=== PATIENT | female | born 1945 | race Caucasian/White ===

== ENCOUNTER → 2016-04-14 | Outpatient (CLI) | payer BC ==
--- NOTE | 2016-04-17 15:13 | MAMMOGRAPHY REPORT ---
BILATERAL DIGITAL SCREENING MAMMOGRAM TOMOSYNTHESIS WITH CAD: 04/14/2016 TECHNIQUE: Breast tomosynthesis in addition to standard 2D mammography was performed. Current study was also evaluated with a Computer Aided Detection (CAD) system. COMPARISON: Comparison is made to exams dated: 06/10/2014 mammogram - [facility], 06/05/2006, 07/13/2009 mammogram, 03/31/2010 mammogram, and 07/16/2009 mammogram - [facility]. BREAST COMPOSITION: There are scattered areas of fibroglandular density in both breasts. FINDINGS: No suspicious masses, calcifications, or areas of architectural distortion are noted in e ither breast. There has been no significant interval change compared to prior exams. There are stab le postsurgical changes from bilateral reduction mammoplasty. Scattered bilateral benign-appearing calcifications are not significantly changed. IMPRESSION: ACR BI-RADS CATEGORY 2: BENIGN There is no mammographic evidence of malignancy. A 1 year screening mammogram is recommended. The p atient will receive written notification of the results. Approximately 10% of breast cancers are not detected with mammography. A negative mammographic repor t should not delay biopsy if a clinically suggestive mass is present. Elida Trimble M.D. ah/:04/14/2016 15:38:50 Radiation Oncology Therapist: Brianda KIRKPATRICK)([place]), [facility] letter sent: Normal 1/2 BI-RADS Code: ACR BI-RADS Category 2: Benign
== END | disposition home or self-care (01) ==
LOC: C.MAMM 15:14
PROVIDERS: ATTEND Obstetrics & Gynecology
DX: Z12.31 Encounter for screening mammogram for malignant neoplasm of breast (principal)

== ENCOUNTER → 2016-05-16 | Outpatient (CLI) | payer BC ==
[2016-05-16 16:24] LABS: THYROID STIMULATING HORMONE 0.87 uIu/ml (0.300-4.500)
== END | disposition home or self-care (01) ==
LOC: C.LAB1850 14:57
PROVIDERS: ATTEND Internal Medicine Endocrinology, Diabetes & Metabolism
DX: E05.90 Thyrotoxicosis, unspecified without thyrotoxic crisis or storm (principal)

== ENCOUNTER → 2016-08-04 | Outpatient (CLI) | payer BC ==
[2016-08-04 12:11] LABS: THYROID STIMULATING HORMONE 0.429 uIu/ml (0.300-4.500)
== END | disposition home or self-care (01) ==
LOC: C.LAB1850 10:27
PROVIDERS: ATTEND Physician Assistant
DX: E05.00 Thyrotoxicosis with diffuse goiter without thyrotoxic crisis or storm (principal)

== ENCOUNTER → 2016-09-19 | Outpatient (CLI) | payer BC ==
[2016-09-19 13:12] LABS: THYROID STIMULATING HORMONE 0.194 uIu/ml (0.300-4.500)
== END | disposition home or self-care (01) ==
LOC: C.LAB1850 11:10
PROVIDERS: ATTEND Physician Assistant
DX: E05.90 Thyrotoxicosis, unspecified without thyrotoxic crisis or storm (principal)

== ENCOUNTER → 2016-10-26 | Outpatient (CLI) | payer BC ==
[2016-10-26 12:43] LABS: THYROID STIMULATING HORMONE 0.541 uIu/ml (0.300-4.500)
== END | disposition home or self-care (01) ==
LOC: C.LAB1850 10:57
PROVIDERS: ATTEND Physician Assistant
DX: E05.90 Thyrotoxicosis, unspecified without thyrotoxic crisis or storm (principal)

== ENCOUNTER → 2016-11-24 | Outpatient (CLI) | payer BC ==
[2016-11-24 13:41] LABS: THYROID STIMULATING HORMONE 1.3 uIu/ml (0.300-4.500)
== END | disposition home or self-care (01) ==
LOC: C.LAB1850 10:37
PROVIDERS: ATTEND Physician Assistant
DX: E05.90 Thyrotoxicosis, unspecified without thyrotoxic crisis or storm (principal)

== ENCOUNTER → 2016-12-07 | Outpatient (CLI) | payer BC | END | disposition home or self-care (01) | LOC: C.MAMM 11:01 | PROVIDERS: ATTEND Family Medicine | DX: M17.0 Bilateral primary osteoarthritis of knee (principal) ==

== ENCOUNTER → 2017-02-02 | Outpatient (CLI) | payer BC ==
[2017-02-02 14:51] LABS: THYROID STIMULATING HORMONE 0.948 uIu/ml (0.300-4.500)
== END | disposition home or self-care (01) ==
LOC: C.LAB1850 12:51
PROVIDERS: ATTEND Physician Assistant
DX: E05.90 Thyrotoxicosis, unspecified without thyrotoxic crisis or storm (principal)

== ENCOUNTER → 2017-04-05 | Outpatient (CLI) | payer BC | END | disposition home or self-care (01) | LOC: C.LAB1850 13:52 | PROVIDERS: ATTEND Physician Assistant | DX: E05.90 Thyrotoxicosis, unspecified without thyrotoxic crisis or storm (principal) ==

== ENCOUNTER → 2017-05-25 | Outpatient (CLI) | payer BC | END | disposition home or self-care (01) | LOC: C.LAB1850 11:49 | PROVIDERS: ATTEND Physician Assistant | DX: E05.90 Thyrotoxicosis, unspecified without thyrotoxic crisis or storm (principal) ==

== ENCOUNTER 2018-10-02 04:55 | Inpatient (IN) ==
--- NOTE | 2018-09-04 16:14 | PAT Medication Instructions ---
Medication Instructions Date of Service September 04, 2018 Home Medications Ijeoma And Ijeoma Tea 1 dose PO DAILY Turmeric 1 dose PO DAILY methimazole [Tapazole] 5 mg PO HS multivitamin 1 cap PO DAILY naproxen sodium [Aleve] 220 mg PO UD PRN vppetiuk-[id number] [Neosporin (ylx-ogl-xtrqn)] 1 applic TOPICAL UD PRN STOP taking 2 weeks before surgery (or as soon as possible if surgery is within 2 weeks) Ijeoma And Ijeoma Tea 1 dose PO DAILY Turmeric 1 dose PO DAILY STOP taking 24 hours before surgery [id number]-wxsbfbpmyIq-[id number] [Neosporin (oju-kbw-mjdtc)] 1 applic TOPICAL UD PRN DO NOT take the morning of surgery multivitamin 1 cap PO DAILY Take morning of surgery methimazole [Tapazole] 5 mg PO HS Other Notes If you have any questions please call us at [phone] or [phone] or [phone] or [phone]
--- NOTE | 2018-09-05 14:05 | Anesthesiology Consultation ---
Date of Service September 05, 2018 Assessment & Plan (1) Encounter for pre-operative examination: Cardio: 08/19/18: "risk of cardiac complications is less than 1%. "soft murmur of AV sclerosis" based on exam; no prior ECHO (I/ systolic murmur on evaluation at [facility] 09/05/18). F/U as needed per cardio. Chart Review Chart Review: Acceptable Risk for Surgery and Patient seen in Pre Admission Testing Teaching & Discussion Pre-Anesthesia Teaching/Discussion Notes: Instructed NPO after midnight before surgery,except medications with 15 cc of water. Medication instructions pro vided according to the [facility] guidelines. History Surgery Operation Date: 10/02/18 07:00 Proposed Procedures p Left Total Knee Arthroplasty - Rene Dao MD Height/Weight Height: 5 ft 6 in Weight: 96 kg Allergies Allergy/AdvReac Type Severity Reaction Status Date / Time Sulfa (Sulfonamide Allergy Unknown ? swollen Verified 09/05/18 14:04 Antibiotics) glands Medications Home Medications Medication Instructions Recorded Confirmed Last Taken Ijeoma And Ijeoma Tea 1 dose PO DAILY 08/27/18 08/27/18 Unknown Turmeric 1 dose PO DAILY 08/27/18 08/27/18 Unknown methimazole [Tapazole] 5 mg PO HS 08/27/18 08/27/18 08/26/18 multivitamin 1 cap PO DAILY 08/27/18 08/27/18 Unknown naproxen sodium [Aleve] 220 mg PO UD PRN 08/27/18 08/27/18 Unknown xjvuzjcw-jtuvlqoqxFn-qfuoppedZ 1 applic TOPICAL UD PRN 08/27/18 08/27/18 Unknown [Neosporin (zxr-wri-iukag)] Past Medical History Medical History Hyperthyroidism on methimazole (endocrine monitoring, euthyroid on most recent labs) Obesity Osteoarthritis Exercise / Class Metabolic Activity II 4-5 Yardwork/Stairs/Walk up hill (uses cane prn) Past Family History Family History Mother Family history of heart attack Past Surgical History Surgical History History of colonoscopy History of hysterectomy History of tonsillectomy Past Anesthesia History No Hx of Anesthesia Complications and No Family Hx of Anesthesia Complications History of PONV No Hx of PONV and No Hx of Motion Sickness Social History Smoking Status: Never smoker Do You Dip or Chew Tobacco: No Hx Alcohol Use: Yes Alcohol type: wine alcohol intake frequency: holidays/special occasions only Hx Substance Use: No substance use type: does not use Review of Systems Patient denies chest pain, shortness of breath, dyspnea on exertion, reflux, cough, wheezing, palpitations. Physical Exam Vital Signs VITALS BP 128/84 P 79 TEMP 97.9 SP02 98%RA RESP 18 PHYSICAL Full neck and c-spine range of motion. Full TMJ range of motion. TMD 3 finger breaths Mallampati Score 2 Dentition: intact, several crowns on sides/molars Lungs: clear throughout to auscultation Cardiac: regular rate and rhythm, I/ systolic murmur Spine: normal Carotid arteries: negative bruit Extremities: no edema Testing Laboratory Results 09/05/18 14:22 09/05/18 14:22 PT 10.4 Seconds (9.0-12.0) 09/05/18 14:22 INR 1.0 (0.9-1.1) 09/05/18 14:22 APTT 25.2 Seconds (21.0-31.0) 09/05/18 14:22 Urine Color Yellow 09/05/18 14:22 Urine Appearance Clear (Clear) 09/05/18 14:22 Urine pH 5.0 (4.5-7.5) 09/05/18 14:22 Ur Specific [place] 1.024 (1.000-1.030) 09/05/18 14:22 Urine Protein Negative (Negative) 09/05/18 14:22 Urine Glucose (UA) Negative (Negative) 09/05/18 14:22 Urine Ketones Negative (Negative) 09/05/18 14:22 Urine Nitrite Negative (Negative) 09/05/18 14:22 Ur Leukocyte Esterase Trace (Negative) H 09/05/18 14:22 Urine WBC (Auto) 5-10 /hpf (0-5) H 09/05/18 14:22 Urine RBC (Auto) 0-4 /hpf (0-4) 09/05/18 14:22 U Hyaline Cast (Auto) 0 /lpf (0-5) 09/05/18 14:22 U Epithel Cells (Auto) >30 /lpf (0-5) H 09/05/18 14:22 Urine Bacteria (Auto) 2+ (Negative) H 09/05/18 14:22 Blood Type B Positive 09/05/18 14:22 Antibody Screen NEGATIVE 09/05/18 14:22 09/05/18 14:22 Urine Culture - Final Urine,Clean Catch Citrobacter sedlakii *Surgeon made aware of abnormal UA* 09/09/18 TSH 0.693 (WNL) Electrocardiogram Date: 08/13/18 Findings: + NSR @ (85) Chest X-Ray Date: 09/05/18 Findings: + NAD
--- NOTE | 2018-09-05 14:56 | XRay Report ---
XR chest Pre-admission PA/Lat CLINICAL HISTORY: pat COMPARISON STUDY: No previous studies for comparison. FINDINGS: Lung volumes are normal. Lungs are clear. There is no pneumothorax or pleural effusion. Car diac size is normal. Mediastinal contours are normal. There is no evidence for pulmonary edema. IMPRESSION: No acute cardiopulmonary findings. Electronically signed by: Zia Ovalle M.D. 09/05/2018 2:55 PM
[2018-09-05 15:14] LABS: Basophils # (auto) 0.02 K/uL (0-0.2); Basophils % (auto) 0.2 %; Eosinophils % (auto) 2.1 %; Hematocrit (blood only) 37.4 % (37-47); Hemoglobin 12.8 g/dL (12.0-16.0); Immature Granulocytes # (auto) 0.02 K/uL (0.00-0.02); Immature Granulocytes % (auto) 0.2 %; Lymphocytes # (auto) 3.11 K/uL (1.2-3.4); Lymphocytes % (auto) 33.3 %; Mean Corpuscular Hgb Conc 34.2 g/dL (32-36); Mean Corpuscular Volume 89.9 fL (80-100); Mean Platelet Volume 11.3 fL (7.4-10.4); Monocytes % (auto) 6.4 %; Neutrophils # (auto) 5.38 K/uL (1.4-6.5); Neutrophils % (auto) 57.8 %; Platelet Count 215 K/uL (130-400); RDW Coefficient of Variation 13.5 % (11.5-14.5); RDW Standard Deviation 43.9 fL (36.4-46.3); Red Blood Count 4.16 M/uL (4.2-5.4); White Blood Count 9.33 K/uL (4.8-10.8)
[2018-09-05 15:21] LABS: BUN Creatinine Ratio 24.4 (10-20); Calcium 9.5 mg/dl (8.5-10.1); Creatinine Clr Calc Pharmacy 73.3 ml/min; Est GFR (African American) 84.1; Est GFR (Non-African American) 72.6; Potassium 4.4 mmol/L (3.5-5.1)
[2018-09-05 15:33] LABS: Appearance Urine Clear (Clear); Bacteria Urine Automated 2+ (Negative); Bilirubin Urine Negative (Negative); Blood Urine Negative (Negative); Cast Urine Automated 0 /lpf (0-5); Color Urine Yellow; Epithelial Cell Urine Auto >30 /lpf (0-5); Glucose Urine UA Negative (Negative); Ketones Urine Negative (Negative); Leukocyte Esterase Urine Trace (Negative); Nitrite Urine Negative (Negative); Protein Urine Negative (Negative); RBC Urine Automated 0-4 /hpf (0-4); Specific Gravity Urine 1.024 (1.000-1.030); Urobilinogen Urine Negative (Negative)
[2018-09-05 15:34] LABS: Partial Thromboplastin Ratio 0.9; Partial Thromboplastin Time 25.2 Seconds (21.0-31.0); Prothrombin Time 10.4 Seconds (9.0-12.0)
--- NOTE | 2018-09-11 15:58 | History and Physical Report ---
DATE OF ADMISSION: 10/02/2018 DATE OF SURGERY: 10/02/2018. CHIEF COMPLAINT: Left knee pain. HISTORY OF PRESENT ILLNESS: This 72-year-old white female presents with her daughter for evaluation of the left knee pain. She states she has had left knee pain for over 20 years. It has become worse with time. She notes occasional swelling. She has lost motion. She has tried cortisone injections as well as stem cell injection without lasting relief. Pain is worse with standing and walking. It does affect her ADLs. She is using a cane at this time. Pain improves with sedentary rest. She does get occasional night pain. Preoperative imaging has been obtained. PAST MEDICAL HISTORY: Significant for heart murmur, hypothyroidism, osteoarthritis, low back pain, and obesity. PAST SURGICAL HISTORY: Hysterectomy in 1990. CURRENT MEDICATIONS: Multivitamin daily, turmeric daily, Tapazole 5 mg daily, radha, glucosamine daily. ALLERGIES: KNOWN ALLERGY TO SULFA. FAMILY HISTORY: Noncontributory. Parents are . SOCIAL HISTORY: The patient is retired. No tobacco use, no ETOH use. Single. REVIEW OF SYSTEMS: A total of 10 systems are reviewed and are significant only for above-stated conditions. PHYSICAL EXAMINATION: GENERAL: Well-developed, well-nourished elderly white female in no acute distress. Sitting in a chair. Alert and oriented. SKIN: Warm and dry with good turgor. No rashes or lesions. No ecchymosis or erythema. Moderate intraarticular effusion. HEENT: Normocephalic, atraumatic. Eyes: PERRLA, EOMI. Nares patent bilaterally without turbinate enlargement. Oropharynx without erythema or exudate. No lesions noted. Uvula midline. Oral mucosa moist. Fair dentition. Dental caps and fillings are noted. HEART: RRR. 2/6 systolic ejection murmur noted. No gallops or rubs. LUNGS: Clear to auscultation bilaterally. No crackles, rhonchi or wheezing. Good air movement. ABDOMEN: Obese. Bowel sounds present x4, soft, nontender. No organomegaly. No masses. MUSCULOSKELETAL: Left knee evaluation reveals obvious arthritic changes. Intraarticular effusion as stated. She has full terminal extension. Flexion to only around 80 degrees. Strength is 5/5 with fair quad tone. No defect in the patellar tendon or quadriceps tendon. Stable collateral ligaments. Varus stance. There is significant discomfort with palpation over the medial and lateral joint lines with medial being worst. Ambulatory with an antalgic gait using her cane. NEUROLOGIC: Gross sensation is intact across both lower extremities by soft touch. Cranial nerves II through XII are intact. DATA: Radiographic imaging previously obtained shows significant medial joint space DJD with varus alignment. Periarticular osteophytes and subchondral sclerosis are also evident. IMPRESSION: Left knee end-stage degenerative joint disease. PLAN: Informed written consent to proceed with left knee total knee arthroplasty will be obtained in the morning of surgery. Postoperative prescriptions for Percocet and Coumadin will be provided at discharge from the hospital. Anticipate discharge to home with home health services. She already made her physical therapy appointment for 2 weeks postop. Preoperative lab work, EKG, and chest x-ray have been ordered. She has already received her medical clearance from Dr. Dave and Dr. West. She already has a walker and raised toilet seat at home.
[2018-10-02] MEDS ORDERED: LACTATED RINGER'S 1,000 ML IV SCH (06:00)
[2018-10-02] MEDS ORDERED: CEFAZOLIN 2000MG 2,000 MG/15 ML SYR IV SCH (06:00)
[2018-10-02] MEDS ORDERED: ROPIVACAINE 0.5% HCL/PF 150 MG, BUPIVACAINE 0.5% MPF 30 ML, EPINEPHrine 0.15 MG, Ketoro... INFIL SCH (06:00)
[2018-10-02] MEDS ORDERED: LR 500ML BOLUS, THEN 15ML/HR IV SCH (06:00)
[2018-10-02] MEDS ORDERED: ROPIVACAINE 0.5% 5 MG/ML 30 ML VIAL ONE (06:28)
[2018-10-02] MEDS ORDERED: BUPIVACAINE 0.5 % 5 MG/1 ML PF 10ML VIAL ONE (06:28)
[2018-10-02] MEDS ORDERED: ORTHO JOINT ANESTHETIC ONE (06:30)
[2018-10-02] MEDS ORDERED: TRANEXAMIC ACID 1,000 MG **IV Intra-op IV SCH (06:30)
[2018-10-02] MEDS ORDERED: MIDAZOLAM HCL 1 MG/ML 2ML VIAL ONE (06:38)
[2018-10-02] MEDS ORDERED: fentaNYL citrate 100 MCG/2 ML VIAL ONE (06:38)
--- NOTE | 2018-10-02 06:39 | History & Physical Bridge Note ---
Date of Service October 02, 2018 History & Physical Bridge Note I have examined the patient, reviewed the History & Physical and in the interval since the performance of the History & Physical I have noted the following changes of clinical significance: consent obtained.no changes noted
[2018-10-02] MEDS ORDERED: ONDANSETRON INJ 2 MG/ML 2 ML VIAL IV PRN ×2 (06:57→10:01)
[2018-10-02] MEDS ORDERED: ATROPINE SULFATE 0.1 MG/ML 10ML SYR IV PRN (06:57)
[2018-10-02] MEDS ORDERED: ePHEDrine sulfate 50 MG/ML AMP IV PRN (06:57)
[2018-10-02] MEDS ORDERED: fentaNYL citrate 100 MCG/2 ML VIAL IV PRN (06:57)
[2018-10-02] MEDS ORDERED: LIDOCAINE HCL 2% 2 ML VIAL/AMP(20MG/ML) INFIL ONE (07:43)
[2018-10-02] MEDS ORDERED: PROPOFOL IV EMULSION 10 MG/ML 20 ML VIAL IV ONE (07:43)
--- NOTE | 2018-10-02 08:23 | Post Operative Brief Note ---
Immediate Post Op Note v1 Date of Surgery October 02, 2018 Pre & Post Diagnosis Operation Date: 10/02/18 07:00 Pre-Op Diagnosis: Left Knee End-Stage Degenerative Joint Disease Post-Op Diagnosis: Left Knee End-Stage Degenerative Joint Disease Procedure Operation Date: 10/02/18 07:00 Actual Procedures p Left Total Knee Arthroplasty, Cemented(Left) - Rene Dao MD Surgeon Rene Dao MD Director Service patrizia frausto Estimated Blood Loss 75 Findings Consistent with Post-Op Diagnosis
--- NOTE | 2018-10-02 08:39 | Operative Report ---
Post Operative Report Pre & Post Diagnosis Operation Date: 10/02/18 07:00 Pre-Op Diagnosis: Left Knee End-Stage Degenerative Joint Disease Post-Op Diagnosis: Left Knee End-Stage Degenerative Joint Disease Procedure Operation Date: 10/02/18 07:00 Actual Procedures p Left Total Knee Arthroplasty, Cemented(Left) - Rene Dao MD Surgeon ASHLEY Dao MD Furnace Charger patrizia bangura Estimated Blood Loss 75 Findings Consistent with Post-Op Diagnosis Specimens see operative report Drains none Complications none Disposition Accompanied Patient To Recovery: Yes Disposition: Recovery Room Indications This 72-year-old white female presented to the office with complaints of intractable left knee pain. She had tried conservative care measures without improvement. Patient elected to proceed with surgical intervention after being educated about potential risks and outcomes. Preoperative imaging was obtained. Description of Procedure Patient was administered a spinal and regional anesthetic, and then taken to the operating room where she was given sedation. She was prepped and draped in the usual sterile fashion. Please see Dr. Dao's operative report for specifics of the procedure. I was present for the entire case from initial patient positioning through final wound closure. Assistance was provided in tissue retraction, hemostasis, trial implant placement, final implant placement, and final wound closure. Patient was taken to the recovery room in satisfactory condition. I attest to the content of the Intraoperative Record and any orders documented therein. Any exceptions are noted below.
--- NOTE | 2018-10-02 08:58 | XRay Report ---
XR knee LT 2V routine HISTORY: 72 years-old Female Surgical Post Op left knee total joint arthroplasty COMPARISON: None available TECHNIQUE: 2 views of the left knee FINDINGS: Left knee total joint arthroplasty and patella resurfacing. Satisfactory alignment without acute frac ture or retained foreign body. Anterior midline skin iveth are noted along with expected postsurgic al soft tissue swelling and deep tissue air with surgical drainage catheter. IMPRESSION: Left knee total joint arthroplasty and patella resurfacing demonstrates satisfactory alig nment. The above report was generated using voice recognition software. It may contain grammatical, syntax o r spelling errors. Electronically signed by: Owen Vaughan M.D. 10/02/2018 8:57 AM
--- NOTE | 2018-10-02 09:16 | Operative Report ---
DATE OF OPERATION: 10/02/2018 SURGEON: Rene Dao MD. PRISM INSPECTOR: Chevy SECOND JEWELRY SETTER: Jayme Maier PA-C. PREOPERATIVE DIAGNOSES: Osteoarthritis with varus flexion deformity, left knee. POSTOPERATIVE DIAGNOSES: Osteoarthritis with varus flexion deformity, left knee. OPERATION PERFORMED: Cemented left total knee replacement. SUMMARY OF IMPLANTS: Size 3 left femoral component posterior cruciate substituting, size 3 mobile bearing tray posterior cruciate substituting, oval dome 3 peg patella size 38, tibial insert rotating platform size 3, 12.5 mm insert. Two bags of Palacos G cement. ESTIMATED BLOOD LOSS: 75 mL. CRYSTALLOID: Per Anesthesia. DVT PROPHYLAXIS: Per protocol. PERIOPERATIVE SITUATION: Medically cleared female with intractable knee pain. Has fixed varus and flexion deformity of about 5-7 degrees of her left knee. Right knee is also the same. She picked the left knee by preference. She wished to proceed with surgical treatment. She understands the risks and consequences. See consent. DESCRIPTION OF PROCEDURE: The patient was appropriately identified, site verified, consent verified. Antibiotics confirmed as being given. TXA confirmed as being given. The left lower extremity was prepped and draped in usual routine fashion. Tourniquet inflated to 300 mmHg after exsanguination of limb with a rubber Esmarch bandage for a total of approximately 47 minutes. Midline exposure was utilized. Parapatellar arthrotomy performed. Synovectomy completed. Osteophytes resected. Distal femur then entered. Cruciates resected. Tibia subluxated. Remaining menisci excised. Care taken to coagulate the lateral side with the lateral inferior geniculate artery. The distal femur was then resected 14 mm, proximal tibia 4 mm. The extension gap was excellent. Femur was sized to 3. Appropriate cutting block applied and the anterior and posterior condylar and chamfer cuts made. Flexion gap was excellent. Posterior capsule was then injected with 2 syringes 10 mL each of the Orthomix. Box cut was then made, a size 3 fit well. Tibia was then broached and reamed to a size 3. Appropriate spacer placed 12.5 mm and the knee was stable in full extension, mid range flexion and full flexion. The patella tracked well. There was large loose bodies and a pedunculated loose body on the superior patella. This was excised. The patella was then trimmed and resected leaving 15 mm and then the 38 button was then applied. Tracked well. All trial implants were then removed once the Orthomix was injected, irrigated with Betadine and Pulsavac and then permanent cemented into position sequentially starting with tibia, femur and patella in that order. After 12 minutes, the tourniquet deflated. After 14 minutes, the knee flexed. No cement removal required. Wound irrigated with Betadine and Pulsavac and then the permanent liner seated. The knee reduced and closed with the knee at about 60 degrees of flexion using #2-0 Vicryl and stainless steel clips. Appropriate dressing applied. The patient transferred to Recovery Room in satisfactory condition having tolerated the procedure well. I attest to the content of the Intraoperative Record and any orders documented therein. Any exceptions are noted below. GOLDY
--- NOTE | 2018-10-02 09:20 | Anesthesiology Progress Note ---
Date of Service October 02, 2018 Anesthesia Post Procedure Vital Signs Vital Signs: Temp Pulse Pulse Resp BP Pulse Ox 10/02/18 09:05 88 18 118/76 95 10/02/18 08:55 83 14 111/69 99 10/02/18 08:45 84 14 115/68 100 10/02/18 08:35 91 H 16 104/70 96 10/02/18 08:29 36.2 C L 80 16 105/66 99 10/02/18 05:39 36.8 C 110 H 20 134/95 97 Pain Intensity Left Knee: Pain Intensity: 7 Transfer of Care Handoff Completed per policy Notes Mental Status: alert / awake / arousable and participated in evaluation Patient Amnestic to Procedure: Yes Nausea / Vomiting: adequately controlled Pain: adequately controlled Airway Patency, RR, SpO2: stable & adequate BP & HR: stable & adequate Hydration State: stable & adequate Neuraxial Anesthesia: was administered and sensory block is resolving Anesthetic Complications: no major complications apparent and Pt Satisfied with anesthetic care
[2018-10-02] MEDS ORDERED: PHENYLEPHRINE 100MCG/ML 5ML SYR ONE (09:46)
[2018-10-02] MEDS ORDERED: MAGNESIUM HYDROXIDE SUSP 30 ML UDC PO PRN (10:01)
[2018-10-02] MEDS ORDERED: BISACODYL 10 MG SUPP PR PRN (10:01)
[2018-10-02] MEDS ORDERED: ALUMINUM/MAGNESIUM SUSP 30 ML UDC PO PRN (10:01)
[2018-10-02] MEDS ORDERED: HYDROmorphone INJ 0.5 MG/0.5 ML SYR IV PRN (10:01)
[2018-10-02] MEDS ORDERED: NALOXONE HCL 0.4 MG/1 ML VIAL/CARP IV PRN (10:01)
[2018-10-02] MEDS ORDERED: METOCLOPRAMIDE HCL INJ 5 MG/ML 2 ML VIAL IV PRN (10:01)
[2018-10-02] MEDS ORDERED: DiphenhydrAMINE HCL 50 MG/ML VIAL IV PRN (10:01)
[2018-10-02] MEDS ORDERED: OXYCODONE HCL IR 5 MG TAB (IMMEDIATE RELEASE) PO PRN (10:01)
[2018-10-02] MEDS ORDERED: SODIUM CHLORIDE 0.9% 1000ML 1,000 ML IV SCH (10:01)
[2018-10-02] MEDS: DOCUSATE SODIUM 100 MG CAP PO SCH ×2 (11:44→21:17)
[2018-10-02] MEDS: MULTIVITAMIN TAB PO SCH (11:44)
[2018-10-02] MEDS: KETOROLAC TROMETHAMINE 15 MG/ML VIAL IV SCH ×2 (11:45→17:15)
[2018-10-02] MEDS: ORTHO WARFARIN NOMOGRAM SCH (12:09)
[2018-10-02] MEDS ORDERED: Nursing to Pharmacy Communication ONE (12:38)
--- NOTE | 2018-10-02 12:43 | Operative Report ---
Post Operative Report Pre & Post Diagnosis Operation Date: 10/02/18 07:00 Pre-Op Diagnosis: Left Knee End-Stage Degenerative Joint Disease Post-Op Diagnosis: Left Knee End-Stage Degenerative Joint Disease Procedure Operation Date: 10/02/18 07:00 Actual Procedures p Left Total Knee Arthroplasty, Cemented(Left) - Rene Dao MD Surgeon Rene Dao MD Wood Carver patrizia bangura Estimated Blood Loss 75 Findings Consistent with Post-Op Diagnosis Specimens Please refer to the op notes Drains None Complications none Disposition Accompanied Patient To Recovery: Yes Disposition: Recovery Room Indications End stage left knee degenerative joint disease Description of Procedure The patient was anesthetized and positioned in supine position. The left lower extremity was prepped and draped in a standard fashion. Please refer to the op notes of Dr. Dao for specific details. I assisted for surgery and closure. The patient was transferred to the PACU in a safe condition I attest to the content of the Intraoperative Record and any orders documented therein. Any exceptions are noted below.
--- NOTE | 2018-10-02 13:49 | Progress Note ---
DATE: 10/02/2018 SUBJECTIVE: Postop check. Doing well status post left total knee replacement. She already ate and drank. Denies chest pain, shortness of breath, fever, chills, nausea, vomiting or headache. OBJECTIVE: Vital signs are stable. She is afebrile. Neurovascular check femoral sciatic nerve is wakening up after the fundal block. Everything looks like it is intact. Wound dressing clean, dry and intact. She can do straight leg raise. She can do ankle dorsi and plantar flexion, inversion, eversion. ASSESSMENT: Doing well. Postop x-rays look excellent. Continue with care pathway. Case management involved.
[2018-10-02] MEDS: ACETAMINOPHEN 500 MG TAB PO SCH ×2 (14:01→21:17)
[2018-10-02] MEDS: CEFAZOLIN 2000MG 2,000 MG/15 ML SYR IV SCH ×2 (14:02→21:18)
[2018-10-02] MEDS ORDERED: TRANEXAMIC ACID 1,000 MG in 0.9 % SODIUM CHLORIDE 100 ML IV SCH (14:30)
[2018-10-02] MEDS ORDERED: WARFARIN SOD 5 MG TAB PO ONE (16:00)
[2018-10-02] MEDS: ASCORBIC ACID 500 MG TAB PO SCH (17:15)
[2018-10-02] MEDS: FERROUS GLUCONATE 324 MG TAB PO SCH (17:15)
[2018-10-02] MEDS ORDERED: methIMAzole 5 MG TABLET PO SCH (21:00)
[2018-10-02] MEDS ORDERED: SENNA 8.6 MG TAB PO SCH (21:00)
[2018-10-03] MEDS: KETOROLAC TROMETHAMINE 15 MG/ML VIAL IV SCH ×2 (00:17→06:18)
[2018-10-03] MEDS: ACETAMINOPHEN 500 MG TAB PO SCH (06:18)
--- NOTE | 2018-10-03 07:11 | Progress Note ---
DATE: 10/03/2018 Postop check status post left total knee replacement. The patient is without any major issues. She has no chest pain, shortness of breath, fever, chills, nausea, vomiting or headache. Vital signs are stable. She is afebrile. Morning labs are pending. Wound dressing clean, dry and intact. Neurovascular check, femoral sciatic nerve is normal. Calves nontender. Abdomen soft, nontender. ASSESSMENT: Doing well. PLAN: Discharge to home today. Coumadin per nomogram.
--- NOTE | 2018-10-03 07:15 | Discharge Summary ---
CHIEF COMPLAINT: Left knee pain. HISTORY OF PRESENT ILLNESS: A 72-year-old female admitted for elective left total knee replacement. Hospital course has been uneventful. PAST MEDICAL HISTORY: Remarkable for heart murmur, hypothyroidism, osteoarthritis, low back pain, obesity. PAST SURGICAL HISTORY: Remarkable for hysterectomy in 1990. PREADMISSION MEDICATIONS: Include multivitamin, turmeric, Tapazole, glucosamine and radha. She will continue all of her medications. Add Coumadin, to keep INR 1.8-2.2. Discharge dose pending INR results. FAMILY HISTORY: Noncontributory. ALLERGIES: SULFA. SOCIAL HISTORY: Reveals she is retired. No tobacco or alcohol use. REVIEW OF SYSTEMS: Reveals no chest pain, shortness of breath, fever, chills, nausea, vomiting or headache. HOSPITAL COURSE: Has been uneventful. PHYSICAL EXAMINATION: Reveals intact extensor mechanism. On neurovascular check, femoral sciatic nerve is normal. Calves nontender. ASSESSMENT: Status post left total knee replacement. PLAN: The patient is doing well. Discharge to home today. Coumadin for DVT/PE prophylaxis.
[2018-10-03] MEDS ORDERED: dexAMETHasone 10 MG in SYRINGE 0 ML IV SCH (08:00)
[2018-10-03 08:02] LABS: Hematocrit (blood only) 28.2 % (37-47); Hemoglobin 9.7 g/dL (12.0-16.0); Mean Corpuscular Hgb Conc 34.4 g/dL (32-36); Mean Corpuscular Volume 88.7 fL (80-100); Mean Platelet Volume 10.8 fL (7.4-10.4); Platelet Count 158 K/uL (130-400); RDW Coefficient of Variation 13.3 % (11.5-14.5); RDW Standard Deviation 43.7 fL (36.4-46.3); Red Blood Count 3.18 M/uL (4.2-5.4); White Blood Count 11.75 K/uL (4.8-10.8)
[2018-10-03 08:18] LABS: INR 1.1 (0.9-1.1)
[2018-10-03 08:33] LABS: Calcium 8.6 mg/dl (8.5-10.1); Creatinine Clr Calc Pharmacy 66.1 ml/min; Est GFR (Non-African American) 64.7; Potassium 3.7 mmol/L (3.5-5.1)
[2018-10-03] MEDS: DOCUSATE SODIUM 100 MG CAP PO SCH (08:58)
[2018-10-03] MEDS: MULTIVITAMIN TAB PO SCH (08:58)
[2018-10-03] MEDS: ASCORBIC ACID 500 MG TAB PO SCH (08:58)
[2018-10-03] MEDS: FERROUS GLUCONATE 324 MG TAB PO SCH (08:58)
[2018-10-03] MEDS: ORTHO WARFARIN NOMOGRAM SCH (09:13)
--- NOTE | 2018-10-03 09:32 | Anesthesiology Progress Note ---
Date of Service October 03, 2018 Anesthesia Post Procedure Vital Signs Vital Signs: Temp Pulse Pulse Resp BP Pulse Ox 10/03/18 07:39 36.6 C 99 H 98 H 18 114/70 97 10/03/18 07:23 36.6 C 99 H 18 114/70 97 10/03/18 02:57 36.6 C 91 H 14 121/76 98 10/02/18 23:50 36.6 C 92 H 14 113/73 96 10/02/18 20:11 98 H 10/02/18 19:53 36.6 C 101 H 17 125/82 96 10/02/18 15:52 36.7 C 83 17 133/77 97 10/02/18 13:40 36.5 C 96 H 18 114/70 98 10/02/18 12:36 16 124/76 99 10/02/18 11:31 85 16 129/75 99 10/02/18 10:31 78 16 132/82 99 10/02/18 10:01 70 16 126/79 100 Pain Intensity Left Knee: Pain Intensity: 4 Notes Mental Status: alert / awake / arousable and participated in evaluation Patient Amnestic to Procedure: Yes Nausea / Vomiting: adequately controlled Pain: adequately controlled Airway Patency, RR, SpO2: stable & adequate BP & HR: stable & adequate Hydration State: stable & adequate Neuraxial Anesthesia: was administered and sensory block resolved Anesthetic Complications: no major complications apparent and Pt Satisfied with anesthetic care
--- NOTE | 2018-10-03 10:42 | Orthopedic Progress Note ---
Date of Service October 03, 2018 Assessment & Plan (1) Status post total left knee replacement: WBAT with walker assistance and immobilizer for first 48 hrs Pain control with PO meds Ice with EZ wrap DVT prophy with Coumadin and TEDs Biweekly INR checks x 6 wks Goal INR 1.8-2.2 F/u at [facility] in 2 wks as scheduled Subjective Day 1 s/p Left total knee arthroplasty. Doing well. Pain controlled with PO meds. Easily completed PT/OT this AM. I ready to go home with home health serviced. Denies CP, SOB, nausea, vomiting, fever, chills, sweats or lethargy. Review of Systems Review of Systems: All systems reviewed & are unremarkable except as noted in HPI & below Physical Exam Physical Exam: Left Knee: ROM from 0-60. Mild edema. Slight numbness to anterior lower leg just distal to incision site. Jordi intact without drainage or fluctuance. Calf soft and supple. Able to perform SLRT but has quad weakness. NV intact in Left LE Results & Data Vital Signs (Past 12 Hours) Vital Signs Temp Pulse Pulse Resp BP Pulse Ox 10/03/18 07:39 36.6 C 99 H 98 H 18 114/70 97 10/03/18 07:23 36.6 C 99 H 18 114/70 97 10/03/18 02:57 36.6 C 91 H 14 121/76 98 10/02/18 23:50 36.6 C 92 H 14 113/73 96 Laboratory Results 10/03/18 10/03/18 10/03/18 Range/Units 07:18 07:18 07:18 WBC 11.75 H (4.8-10.8) K/uL RBC 3.18 L (4.2-5.4) M/uL Hgb 9.7 L (12.0-16.0) g/dL Hct 28.2 L (37-47) % MCV 88.7 (80-100) fL MCH 30.5 (25-34) pg MCHC 34.4 (32-36) g/dL RDW Std Deviation 43.7 (36.4-46.3) fL RDW Coeff of Sam 13.3 (11.5-14.5) % Plt Count 158 (130-400) K/uL MPV 10.8 H (7.4-10.4) fL PT 11.0 (9.0-12.0) Seconds INR 1.1 (0.9-1.1) Sodium 141 (136-145) mmol/L Potassium 3.7 (3.5-5.1) mmol/L Chloride 110 H (98-107) mmol/L Carbon Dioxide 25 (21-32) mmol/L Anion Gap 7.0 (3-11) BUN 20 H (7-18) mg/dl Creatinine 0.89 (0.6-1.2) mg/dl Est Cr Clr Drug Dosing 66.1 ml/min Est GFR ( Amer) 75.0 Est GFR (Non-Af Amer) 64.7 BUN/Creatinine Ratio 22.0 H (10-20) Glucose 108 H (70-99) mg/dl Calcium 8.6 (8.5-10.1) mg/dl
[2018-10-03] MEDS ORDERED: WARFARIN SOD 5 MG TAB PO ONE (16:00)
== END 2018-10-03 12:19 | disposition home health service (06) | DRG 470 ==
LOC: ASU 04:55 → 3E 08:36

== ENCOUNTER 2019-04-30 04:54 | Observation (INO) ==
--- NOTE | 2019-04-03 15:07 | Anesthesiology Consultation ---
Date of Service April 03, 2019 Assessment & Plan (1) Encounter for pre-operative examination: Chart Review Chart Review: Acceptable Risk for Surgery (pending PCP clearance ) and Patient seen in Pre Admission Testing Awaiting surgeon ordered PCP clearance (done 04/02/19) Left TKA- 10/02/18= done under [facility]- 1 attempt - between L4-5 Prior to left TKA- patient seen by cardio (does not follow routinely) for pre op clearance for left TKA- per 08/19/18 cardio note- "risk of cardiac complications is less than 1%. "soft murmur of AV sclerosis" based on exam"; no hx of ECHO. Did well with left TKA - murmur has stayed stable. Teaching & Discussion Pre-Anesthesia Teaching/Discussion Notes: Instructed NPO after midnight before surgery,except medications with 15 cc of water. Medication instructions provided according to the PAT guidelines. History Surgery Operation Date: 04/30/19 07:00 Proposed Procedures p Right Total Hip Arthroplasty - Rene Dao MD Height/Weight Height: 5 ft 6 in Weight: 94.8 kg Allergies Allergy/AdvReac Type Severity Reaction Status Date / Time Sulfa (Sulfonamide Allergy Unknown ? swollen Verified 03/25/19 11:17 Antibiotics) glands Medications Home Medications Medication Instructions Recorded Confirmed Last Taken multivitamin 1 cap PO DAILY 08/27/18 03/25/19 09/29/18 14:00 Advil 200 mg PO Q6 PRN 10/02/18 03/25/19 1 Week Ago ~09/25/18 methimazole 10 mg PO QPM 03/25/19 03/25/19 Unknown turmeric 400 mg PO DAILY 03/25/19 03/25/19 Unknown Past Medical History Medical History (Updated 04/03/19 @ 15:03 by Andreea Gifford PA-C) Cardiac murmur does not follow w/ cardio (saw dr. felix for pre op clearance summer 2018 -- no hx of ECHO) - murmur faint and stable per PCP Hyperthyroidism on methimazole (endocrine monitoring, euthyroid on most recent labs) Obesity Osteoarthritis Osteopenia Exercise / Class Metabolic Activity II 4-5 Yardwork/Stairs/Walk up hill (one flight of stairs- no chest pain or SOB- goes slow- uses cane due to instability of hips ) Past Surgical History Surgical History History of colonoscopy History of hysterectomy History of left knee replacement 09/2018 - [facility] History of tonsillectomy History of tooth extraction Past Anesthesia History No Hx of Anesthesia Complications and No Family Hx of Anesthesia Complications History of PONV No Hx of PONV and No Hx of Motion Sickness Social History Smoking Status: Never smoker Do You Dip or Chew Tobacco: No Hx Alcohol Use: Yes Alcohol type: wine alcohol intake frequency: a few times a month Hx Substance Use: No substance use type: does not use Review of Systems Patient denies chest pain, shortness of breath, dyspnea on exertion, reflux, cough, wheezing, palpitations. No hx of seizures, stroke, NE, apnea/snoring. No hx of blood clots Hx of blood transfusion in s/p hysterectomy No recent steroid use Physical Exam Vital Signs VITALS BP 136/83 P 80 TEMP 97.5 SP02 100% RESP16 Constitutional no acute distress ENMT Mouth: no TMJ clicking, no chipped teeth and no loose teeth Thyromental Distance: > or= 3.5 Finger Breadths (4.0) Mallampati Class: III Top right missing molar Crowns on molars Neck neck extension not limited Respiratory normal respiratory effort; no respiratory distress Auscultation: lungs clear to auscultation bilaterally; no wheezes Cardiovascular Rate/Rhythm: regular rate and regular rhythm Heart Sounds: + murmur (faint I/ ) Vessels: no carotid bruit Musculoskeletal Spine: normal cervical ROM and no pain with cervical ROM Neurologic moves all extremities Psychiatric Orientation: alert Testing Laboratory Results 04/03/19 15:15 04/03/19 15:15 PT 10.6 Seconds (9.0-12.0) 04/03/19 15:15 INR 1.0 (0.9-1.1) 04/03/19 15:15 APTT 25.8 Seconds (21.0-31.0) 04/03/19 15:15 Urine Color Yellow 04/03/19 15:15 Urine Appearance Clear (Clear) 04/03/19 15:15 Urine pH 5.0 (4.5-7.5) 04/03/19 15:15 Ur Specific [place] 1.014 (1.000-1.030) 04/03/19 15:15 Urine Protein Negative (Negative) 04/03/19 15:15 Urine Glucose (UA) Negative (Negative) 04/03/19 15:15 Urine Ketones Negative (Negative) 04/03/19 15:15 Urine Nitrite Negative (Negative) 04/03/19 15:15 Ur Leukocyte Esterase Negative (Negative) 04/03/19 15:15 Blood Type B Positive 04/03/19 15:15 Antibody Screen NEGATIVE 04/03/19 15:15 Electrocardiogram Date: 04/02/19 Findings: + NSR @ (77) Chest X-Ray Date: 09/05/18 Findings: + NAD
--- NOTE | 2019-04-03 15:18 | PAT Medication Instructions ---
Medication Instructions Date of Service April 03, 2019 Home Medications Medications multivitamin 1 cap PO DAILY Advil 200 mg PO Q6 PRN methimazole 10 mg PO QPM turmeric 400 mg PO DAILY ASK your surgeon for instructions Advil 200 mg PO Q6 PRN (stop 5 days prior per surgeon) STOP taking 2 weeks before surgery turmeric 400 mg PO DAILY DO NOT take the morning of surgery multivitamin 1 cap PO DAILY Take morning of surgery With a small sip of water, OTHERWISE NOTHING TO EAT OR DRINK AFTER MIDNIGHT: Tylenol (up to four hours prior to surgery if needed) Take evening before surgery methimazole 10 mg PO QPM Other Notes If you have any questions please call us at [phone] or [phone] or [phone] or [phone]
[2019-04-03 16:01] LABS: Basophils # (auto) 0.02 K/uL (0-0.2); Basophils % (auto) 0.2 %; Eosinophils % (auto) 2.3 %; Hematocrit (blood only) 39.2 % (37-47); Hemoglobin 13.2 g/dL (12.0-16.0); Immature Granulocytes # (auto) 0.02 K/uL (0.00-0.02); Immature Granulocytes % (auto) 0.2 %; Lymphocytes # (auto) 2.29 K/uL (1.2-3.4); Lymphocytes % (auto) 25.9 %; Mean Corpuscular Hemoglobin 29.5 pg (25-34); Mean Corpuscular Hgb Conc 33.7 g/dL (32-36); Mean Corpuscular Volume 87.7 fL (80-100); Mean Platelet Volume 10.7 fL (7.4-10.4); Monocytes # (auto) 0.49 K/uL (0.11-0.59); Monocytes % (auto) 5.5 %; Neutrophils # (auto) 5.81 K/uL (1.4-6.5); Neutrophils % (auto) 65.9 %; Platelet Count 230 K/uL (130-400); RDW Coefficient of Variation 14.4 % (11.5-14.5); RDW Standard Deviation 46.2 fL (36.4-46.3); Red Blood Count 4.47 M/uL (4.2-5.4); White Blood Count 8.83 K/uL (4.8-10.8)
[2019-04-03 16:02] LABS: Appearance Urine Clear (Clear); Bilirubin Urine Negative (Negative); Blood Urine Negative (Negative); Color Urine Yellow; Glucose Urine UA Negative (Negative); Ketones Urine Negative (Negative); Leukocyte Esterase Urine Negative (Negative); Nitrite Urine Negative (Negative); Protein Urine Negative (Negative); Specific Gravity Urine 1.014 (1.000-1.030); Urobilinogen Urine Negative (Negative)
[2019-04-03 16:08] LABS: Calcium 9.3 mg/dl (8.5-10.1); Creatinine Clr Calc Pharmacy 63.2 ml/min; Est GFR (African American) 71.6; Est GFR (Non-African American) 61.8; Potassium 4.5 mmol/L (3.5-5.1)
[2019-04-03 16:12] LABS: Partial Thromboplastin Time 25.8 Seconds (21.0-31.0); Prothrombin Time 10.6 Seconds (9.0-12.0)
--- NOTE | 2019-04-11 18:21 | History and Physical Report ---
DATE OF ADMISSION: 04/30/2019 CHIEF COMPLAINT: Right hip pain. HISTORY OF PRESENT ILLNESS: This 73-year-old white female who presents today with complaints of longstanding history of right hip pain. It has been ongoing for over a year. She has significant disease based on films. She is having difficulty with ambulation. Pain is worse with weightbearing. It is affecting her ADLs. She denies any numbness or tingling. She has tried activity modification as well as oral pain medications and oral anti-inflammatories without improvement. Her activity is severely limited by her hip pain. She does use a cane for ambulation. Preoperative imaging has been obtained. She elects to proceed with right total hip arthroplasty in hopes of improving her discomfort and functional ability. PAST MEDICAL HISTORY: Significant for elevated cholesterol, hyperthyroidism, osteoarthritis, and obesity. Also, history of chronic back pain. ALLERGIES: KNOWN ALLERGY TO SULFA WHICH CAUSES THROAT EDEMA. IBUPROFEN CAUSES ITCHING. PREVIOUS SURGERIES: Left knee TKA 2018, partial hysterectomy, tonsillectomy, oral surgery. CURRENT MEDICATIONS: Tapazole 7.5 mg daily, multivitamin daily, vitamin C, Lutein, and turmeric daily. FAMILY HISTORY: Significant for heart disease. Mother had dementia. Father had osteoarthritis. SOCIAL HISTORY: The patient is retired. No tobacco use, no ETOH use. Single. REVIEW OF SYSTEMS: A total of 10 systems are reviewed and are significant only for above stated conditions. PHYSICAL EXAMINATION: VITAL SIGNS: Temperature 36.7 oral, pulse 82, BP 122/84, weight is 95.1 kg, height 168.6 cm. GENERAL: Well-developed, well-nourished elderly white female in no acute distress. Sitting in a chair. Alert and oriented. SKIN: Warm and dry with good turgor. No rashes or lesions. No ecchymosis or erythema. HEENT: Normocephalic, atraumatic. Eyes PERRLA, EOMI. Nares patent bilaterally without turbinate enlargement. Oropharynx without erythema or exudate. No lesions noted. Uvula midline. Oral mucosa moist. Fair dentition. Dental caps and fillings are noted. HEART: RRR. No GR. There is a 2/6 systolic ejection murmur noted on the upper sternal border. LUNGS: Clear to auscultation bilaterally. No crackles, rhonchi or wheezing. Good air movement. ABDOMEN: Obese. Bowel sounds present x4, soft, nontender. No organomegaly. No masses. MUSCULOSKELETAL: Right hip has no obvious asymmetry or deformity. She has limited motion secondary to pain. Hip flexion to around 90 degrees, external rotation of around 20 degrees, internal rotation is only to neutral. No discomfort with palpation over the thigh, IT band, or greater trochanter. NEUROLOGIC: Gross sensation is intact across the lower extremities by soft touch. Cranial nerves II-XII are intact. DATA: Radiographic imaging previously obtained shows end-stage DJD of the right hip. Periarticular osteophytes, subchondral sclerosis, and joint space narrowing are all present. IMPRESSION: Right hip end-stage degenerative joint disease. PLAN: Postoperative prescriptions for Percocet and Coumadin will be provided at discharge from the hospital. Anticipate discharge to home with home health services. Preoperative lab work, EKG, and chest x-ray have been ordered. She has already received her medical clearance from Dr. West. She already has a walker and raised toilet seat at home. Informed written consent to proceed with right total hip arthroplasty will be obtained on the morning of surgery. GOLDY
[2019-04-30] MEDS ORDERED: LR 500ML BOLUS, THEN 15ML/HR IV SCH (06:00)
[2019-04-30] MEDS ORDERED: ROPIVACAINE 0.5% HCL/PF 150 MG, BUPIVACAINE 0.5% MPF 30 ML, EPINEPHrine 0.15 MG, Ketoro... INFIL SCH (06:00)
[2019-04-30] MEDS ORDERED: CEFAZOLIN 2000MG 2,000 MG/15 ML SYR IV SCH (06:00)
[2019-04-30] MEDS ORDERED: TRANEXAMIC ACID 1,000 MG **IV Pre-op IV SCH (06:00)
[2019-04-30] MEDS ORDERED: VANCOMYCIN HCL 1,500 MG in SODIUM CHLORIDE 0.9% 500 ML IV SCH (06:00)
[2019-04-30] MEDS ORDERED: LR 60ML/HR IV SCH (06:00)
[2019-04-30] MEDS ORDERED: BUPIVACAINE 0.5 % 5 MG/1 ML PF 10ML VIAL ONE (06:33)
[2019-04-30] MEDS ORDERED: ORTHO JOINT ANESTHETIC ONE (06:36)
--- NOTE | 2019-04-30 06:36 | History & Physical Bridge Note ---
Date of Service April 30, 2019 History & Physical Bridge Note I have examined the patient, reviewed the History & Physical and in the interval since the performance of the History & Physical I have noted the following changes of clinical significance: consent obtained,site verified.no changes noted
[2019-04-30] MEDS ORDERED: PROPOFOL IV EMULSION 10 MG/ML 20 ML VIAL IV ONE ×2 (06:41→08:11)
[2019-04-30] MEDS ORDERED: MIDAZOLAM HCL 1 MG/ML 2ML VIAL ONE (06:41)
[2019-04-30] MEDS ORDERED: fentaNYL citrate 100 MCG/2 ML VIAL ONE (06:41)
[2019-04-30] MEDS ORDERED: ATROPINE SULFATE 0.1 MG/ML 10ML SYR IV PRN (06:57)
[2019-04-30] MEDS ORDERED: LABETALOL HCL IV 5 MG/ML 20ML IV PRN (06:57)
[2019-04-30] MEDS ORDERED: fentaNYL citrate 100 MCG/2 ML VIAL IV PRN (06:57)
[2019-04-30] MEDS ORDERED: PHENYLEPHRINE 100MCG/ML 5ML SYR IV PRN (06:57)
[2019-04-30] MEDS ORDERED: ONDANSETRON INJ 2 MG/ML 2 ML VIAL IV PRN ×2 (06:57→10:00)
[2019-04-30] MEDS ORDERED: ePHEDrine sulfate 50 MG/ML AMP IV PRN (06:57)
[2019-04-30] MEDS ORDERED: HYDROmorphone INJ 1 MG/ML SYRINGE IV PRN (06:57)
[2019-04-30] MEDS ORDERED: MEPERIDINE HCL 25 MG/ML CARP/VIAL IV PRN (06:57)
[2019-04-30] MEDS ORDERED: ONDANSETRON INJ 2 MG/ML 2 ML VIAL ONE (08:12)
--- NOTE | 2019-04-30 08:35 | Post Operative Brief Note ---
Immediate Post Op Note v1 Date of Surgery April 30, 2019 Pre & Post Diagnosis Operation Date: 04/30/19 07:00 Pre-Op Diagnosis: Right Hip End-Stage Degenerative Joint Disease Post-Op Diagnosis: Right Hip End-Stage Degenerative Joint Disease I identified the patient and participated in the time-out.: Yes Procedure Operation Date: 04/30/19 07:00 Actual Procedures p Right Total Hip Arthroplasty--Uncemented(Right) - Rene Dao MD Surgeon Rene Dao MD Biophysics Scientist jim Estimated Blood Loss 100 Findings Consistent with Post-Op Diagnosis Drains Hemovac Drain
--- NOTE | 2019-04-30 08:59 | Operative Report ---
Post Operative Report Pre & Post Diagnosis Operation Date: 04/30/19 07:00 Pre-Op Diagnosis: Right Hip End-Stage Degenerative Joint Disease Post-Op Diagnosis: Right Hip End-Stage Degenerative Joint Disease I identified the patient and participated in the time-out.: Yes Procedure Operation Date: 04/30/19 07:00 Actual Procedures p Right Total Hip Arthroplasty--Uncemented(Right) - Rene Dao MD Surgeon Rene Dao M.D. Buggy Runner Raven Conroy PA-C Estimated Blood Loss 100 Findings Consistent with Post-Op Diagnosis Specimens Bone and soft tissue Drains Hemovac x 2 Anesthesia Type MAC Spinal Regional Complications none Disposition Accompanied Patient To Recovery: Yes Disposition: Recovery Room Description of Procedure Patient was taken to the operating room, placed under spinal anesthesia, given IV sedation. Time out performed, prepped and draped in routine sterile fashion. She was given 2gm IV Ancef for surgical prophylaxis. I was present during the entire case from positioning to out of the room. I assisted with positioning, draping, tissue retraction, implantation of hardware, closure and dressings. Please see Dr. Dao's operative report for further detail. Patient was awakened and taken to the recovery room in stable condition. I attest to the content of the Intraoperative Record and any orders documented therein. Any exceptions are noted below.
[2019-04-30] MEDS ORDERED: VANCOMYCIN HCL 1,500 MG in SODIUM CHLORIDE 0.9% 250 ML IV SCH (09:00)
--- NOTE | 2019-04-30 09:21 | XRay Report ---
SINGLE VIEW PELVIS; SINGLE VIEW RIGHT HIP CLINICAL HISTORY: Postoperative examination. FINDINGS: An AP portable view of the hips and pelvis with a frog-leg portable view of the right hip a re obtained. A bipolar right hip arthroplasty is in near-anatomic alignment. A single cortical lag sc rew transfixes the acetabular cup. No acute fracture is identified. There are expected postoperative changes overlying the right hip including skin clips, subcutaneous gas, a surgical drain, and soft ti ssue swelling. Mild degenerative joint space narrowing is noted in the left hip. IMPRESSION: Expected postoperative findings status post right hip arthroplasty. No acute fracture is seen. ACT 112: Negative or not required by law. Electronically signed by: Javi Garcia M.D. 04/30/2019 9:19 AM
--- NOTE | 2019-04-30 09:39 | Anesthesiology Progress Note ---
Date of Service April 30, 2019 Anesthesia Post Procedure Vital Signs Vital Signs: Temp Pulse Pulse Resp BP Pulse Ox 04/30/19 09:35 79 12 124/75 95 04/30/19 09:25 36.3 C L 87 12 125/77 97 04/30/19 09:15 83 14 123/73 96 04/30/19 09:05 82 12 131/86 97 04/30/19 08:55 86 10 L 140/82 98 04/30/19 08:48 36.5 C 86 16 183/88 H 96 04/30/19 05:42 37 C 104 H 20 143/99 H 97 Pain Intensity Right Hip: Pain Intensity: 0 Transfer of Care Handoff Completed per policy Notes Mental Status: alert / awake / arousable Patient Amnestic to Procedure: Yes Nausea / Vomiting: adequately controlled Pain: adequately controlled Airway Patency, RR, SpO2: stable & adequate BP & HR: stable & adequate Hydration State: stable & adequate Neuraxial Anesthesia: was administered and sensory block is resolving Anesthetic Complications: no major complications apparent and Pt Satisfied with anesthetic care
--- NOTE | 2019-04-30 09:55 | Progress Notes ---
DATE: 04/30/2019 SUBJECTIVE: Postop check, status post right total hip replacement. The patient is lying comfortably in bed. Denies any chest pain, shortness of breath, fever, chills, nausea, vomiting or headache. She states her legs are starting to wake up. Vital signs are stable. She is afebrile. Postop x-rays, AP pelvis and hips reveals excellent hip positioning of the implant. No sign of any fracture. PHYSICAL EXAMINATION: Reveals wound dressing clean, dry and intact. Drain scant drainage. Femoral sciatic nerve limited by block, but starting to wake up. ASSESSMENT AND PLAN: Overall doing well. Continue postop care pathway. Mobilize as soon as legs allow. Discharge tomorrow.
[2019-04-30] MEDS ORDERED: HYDROmorphone INJ 0.5 MG/0.5 ML SYR IV PRN (10:00)
[2019-04-30] MEDS ORDERED: VANCOMYCIN CONSULT ACTIVE PRN (10:00)
[2019-04-30] MEDS ORDERED: bisacodyL 10 MG SUPP PR PRN (10:00)
[2019-04-30] MEDS ORDERED: METOCLOPRAMIDE HCL INJ 5 MG/ML 2 ML VIAL IV PRN (10:00)
[2019-04-30] MEDS ORDERED: NALOXONE HCL 0.4 MG/1 ML VIAL/CARP IV PRN (10:00)
[2019-04-30] MEDS ORDERED: MAGNESIUM HYDROXIDE SUSP 30 ML UDC PO PRN (10:00)
[2019-04-30] MEDS ORDERED: SODIUM CHLORIDE 0.9% 1000ML 1,000 ML IV SCH (10:00)
[2019-04-30] MEDS ORDERED: OXYCODONE HCL IR 5 MG TAB (IMMEDIATE RELEASE) PO PRN (10:00)
[2019-04-30] MEDS: MULTIVITAMIN TAB PO SCH (10:37)
[2019-04-30] MEDS: DOCUSATE SODIUM 100 MG CAP PO SCH ×2 (10:37→20:33)
--- NOTE | 2019-04-30 11:07 | Discharge Summary (DS) ---
CHIEF COMPLAINT: Right hip pain. HISTORY OF PRESENT ILLNESS: The patient underwent elective right total hip replacement. At this point in time, the patient is recovering well. There has been no issues. She denies any nausea, vomiting, chest pain, shortness of breath, fever or chills. PAST MEDICAL HISTORY: Remarkable for hypercholesterolemia, hyperthyroidism, osteoarthritis, obesity, chronic low back pain. PREVIOUS ALLERGIES: INCLUDE SULFA WHICH CAUSES THROAT EDEMA, IBUPROFEN WHICH CAUSES ITCHING. PREVIOUS SURGERIES: Include left total knee replacement in 2019, partial hysterectomy, tonsillectomy, oral surgery. PREADMISSION MEDICATIONS: Include Tapazole, multivitamin, Lutein and turmeric. She will continue all those medications and add Coumadin to keep INR 1.8-2.2. P.r.n. use of pain medication, see prescription. FAMILY HISTORY: Remarkable for heart disease, dementia, osteoarthritis. SOCIAL HISTORY: Reveals she is retired. No tobacco or alcohol use. She is single. REVIEW OF SYSTEMS: Noncontributory. PHYSICAL EXAMINATION: Reveals hip to be located. X-rays postop look excellent. ASSESSMENT: Overall doing well status post right total hip replacement. PLAN: To continue with postop care pathway. Have case management see the patient today and prepare for discharge tomorrow.
--- NOTE | 2019-04-30 11:37 | Operative Report (OR) ---
DATE OF OPERATION: 04/30/2019 SURGEON: Rene Dao MD. COMMISSIONER CONSERVATION OF RESOURCES: Marycarmen. No resident or fellow available. PREOPERATIVE DIAGNOSES: Osteoarthritis right hip with dysplasia. POSTOPERATIVE DIAGNOSES: Osteoarthritis right hip with dysplasia. OPERATION PERFORMED: Noncemented right total hip replacement. PERIOPERATIVE SITUATION: Medically cleared female with intractable right hip pain. At this point in time, wants to proceed with surgical treatment. Had a left knee replacement done in the past. She was advised concerning leg length inequality, instability, etc. She states she understands. She understands risk and consequences. Consent obtained. SUMMARY OF IMPLANTS: Size 50 cup acetabular shell sector 6.5 x 25 screw, 32 x 50 neutral liner, 3 high offset Tri-Lock 32+9 ceramic head. ESTIMATED BLOOD LOSS: 100 mL. CRYSTALLOID: Per Anesthesia. BONE PATHOLOGY: Pending. DVT PROPHYLAXIS: Per protocol. DESCRIPTION OF PROCEDURE: The patient was appropriately identified, site verified, consent verified. Antibiotics confirmed as being given. The right lower extremity was prepped and draped in usual routine fashion with the patient in left lateral decubitus position. She had a very extensive hip anatomy. Incision was made appropriate for size. Deep and superficial Charnley retractor was placed after the fascia was opened. Care taken to protect the sciatic nerve. It was identified and palpated, but not dissected clean. Retractors were well away from this. Short external rotators were then identified and released. The capsule was then released. It was very contracted and was really not of any substance. The hip was then dislocated. The femoral neck resected. The anterior capsule was then released and good exposure of the acetabulum was carried out. There was beefy red hypertrophic synovium all throughout the hip indicating the severity of disease. The labrum was inverted and excised. Serial reaming was then carried up to a 50 and a 50 cup impacted into appropriate anteversion and inclination with excellent rim fit. No major osteophytes needed resected. A 6.5 x 25 screw was placed with excellent purchase. The liner was seated. Knee was then flexed and internally rotated. The proximal femur prepared with box spring maker, canal finder, lateralizing rasp and serial broaching up to a size 3 and the best reduction was with a size 3 high offset +9 that gave good leg lengths and good stability. The hip was then dislocated. All remaining trial elements were removed. The wound irrigated with Betadine, Pulsavac, hole eliminator seated, permanent liner seated, permanent head and stem seated. The hip was reduced, it was stable beyond 100 degrees of flexion with internal rotation to 25 degrees with adduction and flexion to 60 degrees and internal rotation to 50 degrees. It was still located. Leg lengths were good. Wound was then irrigated one final time and closed in multiple layers over deep drains using #2 Vicryl for the fascial layer. There was not much to be repaired to the capsule, etc., due to its contracted nature and the short external rotators. The fascia was closed. The deep layer was closed. The subcutaneous layer was closed in 2 layers and then the skin with stainless steel clips. Appropriate dressing applied. The patient was then transferred to Recovery Room in satisfactory condition having tolerated the procedure well. I attest to the content of the Intraoperative Record and any orders documented therein. Any exception s are noted below.
[2019-04-30] MEDS: KETOROLAC TROMETHAMINE 15 MG/ML VIAL IV SCH ×3 (11:55→23:40)
[2019-04-30] MEDS ORDERED: ORTHO WARFARIN NOMOGRAM SCH (14:00)
[2019-04-30] MEDS: ACETAMINOPHEN 500 MG TAB PO SCH ×2 (14:19→21:03)
[2019-04-30] MEDS: CEFAZOLIN 2000MG 2,000 MG/15 ML SYR IV SCH ×2 (14:19→22:01)
[2019-04-30] MEDS ORDERED: TRANEXAMIC ACID / 0.7% NACL 1,000 MG/100 ML BAG IV SCH (14:52)
[2019-04-30] MEDS ORDERED: WARFARIN SOD 5 MG TAB PO SCH (16:00)
[2019-04-30] MEDS ORDERED: PROPRANOLOL HCL 10 MG TAB PO STA (17:26)
[2019-04-30] MEDS ORDERED: PROPRANOLOL HCL 10 MG TAB PO PRN (19:16)
[2019-04-30] MEDS ORDERED: VANCOMYCIN HCL 1,500 MG in SODIUM CHLORIDE 0.9% 500 ML IV ONE (21:00)
[2019-04-30] MEDS ORDERED: SENNA 8.6 MG TAB PO SCH (21:00)
[2019-04-30] MEDS ORDERED: methIMAzole 5 MG TABLET PO SCH (21:00)
[2019-05-01] MEDS: ACETAMINOPHEN 500 MG TAB PO SCH (05:41)
[2019-05-01] MEDS: KETOROLAC TROMETHAMINE 15 MG/ML VIAL IV SCH (05:41)
[2019-05-01 06:04] LABS: Basophils # (auto) 0.02 K/uL (0-0.2); Basophils % (auto) 0.2 %; Eosinophils # (auto) 0.25 K/uL (0-0.5); Eosinophils % (auto) 2.4 %; Hematocrit (blood only) 33.2 % (37-47); Hemoglobin 11.2 g/dL (12.0-16.0); Immature Granulocytes # (auto) 0.02 K/uL (0.00-0.02); Immature Granulocytes % (auto) 0.2 %; Lymphocytes # (auto) 1.67 K/uL (1.2-3.4); Lymphocytes % (auto) 15.9 %; Mean Corpuscular Hemoglobin 29.9 pg (25-34); Mean Corpuscular Hgb Conc 33.7 g/dL (32-36); Mean Corpuscular Volume 88.5 fL (80-100); Monocytes # (auto) 0.76 K/uL (0.11-0.59); Monocytes % (auto) 7.2 %; Neutrophils # (auto) 7.77 K/uL (1.4-6.5); Neutrophils % (auto) 74.1 %; Platelet Count 172 K/uL (130-400); RDW Coefficient of Variation 14.5 % (11.5-14.5); RDW Standard Deviation 47.3 fL (36.4-46.3); Red Blood Count 3.75 M/uL (4.2-5.4); White Blood Count 10.49 K/uL (4.8-10.8)
[2019-05-01 06:38] LABS: INR 1.1 (0.9-1.1); Prothrombin Time 10.9 Seconds (9.0-12.0)
[2019-05-01 06:40] LABS: BUN Creatinine Ratio 20.6 (10-20); Calcium 8.6 mg/dl (8.5-10.1); Creatinine Clr Calc Pharmacy 67.6 ml/min; Est GFR (African American) 77.7
[2019-05-01] MEDS ORDERED: dexAMETHasone 10 MG in SYRINGE 0 ML IV SCH (08:00)
--- NOTE | 2019-05-01 09:04 | Progress Notes ---
DATE: 05/01/2019 SUBJECTIVE: Status post right total hip replacement. The patient did well overnight. Distally she had more sleep but she does not have any significant pain. It is not manageable. She denies any chest pain, shortness of breath, fever, chills, nausea, vomiting, headache. Her pulse is now in the 80s. She states she was a little bit anxious. she only received 1 dose. She states her thyroid function is good. Wound dressing clean, dry and intact, drained and roughly 50 mL is removed. Dressing retaped. Prevena will be placed by PA in roughly an hour after the drain once we have a chance to seal up. The femoral nerve reveals active knee extension. Tibial sciatic nerve, peroneal nerve reveals active ankle dorsi and plantar flexion, inversion, eversion. Sensation is grossly normal. LABORATORY WORK: This morning reveals hematocrit stable at 33.3, white count of 10.5. INR is 1.1. Electrolytes are good. ASSESSMENT: Status post right total hip replacement. Doing well. We will discharge to home today after PT, OT. Prevena will be placed based on wound precautions for body habitus. She will follow up in a week for that to get the Prevena removed and another pressure dressing applied. She will have home nursing. [place] should be in at least 14 days, maybe longer pending the appearance of the wound. Discharged on 2 mg Coumadin. Check INR on Sunday next week. MTDD
[2019-05-01] MEDS: MULTIVITAMIN TAB PO SCH (09:11)
[2019-05-01] MEDS: DOCUSATE SODIUM 100 MG CAP PO SCH (09:11)
[2019-05-01] MEDS ORDERED: WARFARIN SOD 5 MG TAB PO ONE (16:00)
== END 2019-05-01 11:20 | disposition home health service (06) | DRG 470 ==
LOC: ASU 04:54 → 3E 08:54 → INTOOBSV 08:54

== ENCOUNTER 2020-04-21 05:15 | Observation (INO) ==
--- NOTE | 2020-04-19 08:42 | Anesthesiology Consultation ---
Date of Service April 19, 2020 Assessment & Plan (1) Encounter for pre-operative examination: COVID Status: As of 04/02 assessment, patient denies travel to endemic area, known exposure/sick contacts, or symptoms of COVID19. Patient instructed that they and their household members must follow strict social distancing guidelines, wear a mask in public and avoid travel/events/gatherings for 14 days prior to surgery. Preoperative COVID19 testing completed on 04/14 -- results NEG ATIVE. Patient made aware to self-isolate as much as possible between COVID testing and surgery. She will be getting her second dose of the Pfizer vaccine on 04/12. While at [facility], patient was advised that the vaccine can cause mild flu- like symptoms for some people, and if she is still feeling poorly the day of her COVID test, she should wait until the . If symptoms are still not resolved, she is to call her surgeon. PCP Clearance 04/01/20 = "She does not have any signs or symptoms of cardiopulmonary disease. She can climb 2 flights of stairs at home without any symptoms other and limited by her knee pain. Her labs in December 2019 show normal CBC, CMP, TSH and normal urinalysis. I believe that, patient's cardiopulmonary and overall health status are optimal for the upcoming surgery and the risk of further surgery is relatively low and acceptable. No further evaluation is recommended." Chart Review Chart Review: Acceptable Risk for Surgery and Patient seen in Pre Admission Testing Teaching & Discussion Instructed NPO after midnight before surgery, except medications with 15 cc of water. Medication instructions provided according to the [facility] guidelines. History Surgery Operation Date: 04/21/20 07:00 Proposed Procedures p Right Total Knee Arthroplasty - Rene Dao MD Height/Weight Height: 5 ft 6 in Weight: 89.811 kg Allergies Allergy/AdvReac Type Severity Reaction Status Date / Time Sulfa (Sulfonamide Allergy Unknown ? swollen Verified 04/18/20 14:39 Antibiotics) glands Medications Home Medications Medication Instructions Recorded Confirmed Last Taken multivitamin 1 cap PO QDL 08/27/18 04/18/20 04/29/19 14:00 methimazole 7.5 mg PO QPM 03/24/20 04/18/20 Unknown clotrimazole-betamethasone 1 1 applic TOPICAL BID #15 g 04/01/20 04/18/20 Unknown %-0.05 % topical cream fluconazole 150 mg tablet 150 mg PO Q3D 1 Days #1 tab 04/01/20 04/18/20 Unknown Past Medical History Medical History Cardiac murmur Mild/trace MR, mild TR on 2019 echo. Dyslipidemia Hypertension Hyperthyroidism on methimazole (endocrine monitoring, euthyroid on most recent labs) Near syncope Spring 2019, single episode, evaluated by cardiology, echo WNL. Possibly vertigo based on patient's description. Obesity Osteoarthritis Osteopenia Exercise / Class Metabolic Activity II 4-5 Yardwork/Stairs/Walk up hill (Moving slowly 2/2 knee pain, denies CP or SOB with 1 FOS, using cane sometimes for stability) Past Family History Family History Mother Alzheimer disease Father Myocardial infarction Daughter Breast cancer ER+, genetics were negative Other No family history of adverse response to anesthesia Denies family history of Ovarian cancer Colorectal cancer Uterine cancer Past Surgical History Surgical History History of colonoscopy History of hysterectomy [facility] History of left knee replacement 09/2018 - [facility] History of right hip replacement 04/30/2019 [facility] History of tonsillectomy History of tooth extraction Hx of breast reduction, elective Past Anesthesia History No Hx of Anesthesia Complications and No Family Hx of Anesthesia Complications History of PONV No Hx of PONV and No Hx of Motion Sickness Social History Smoking Status: Never smoker Do You Dip or Chew Tobacco: No Hx Alcohol Use: Yes Alcohol type: wine alcohol intake frequency: a few times a month Hx Substance Use: No substance use type: does not use Review of Systems Pt denies any recent chest pain, shortness of breath, palpitations, cough, fever, URI, or uncontrolled acid reflux. Physical Exam Vital Signs BP: 123/84 P: 83bpm SPO2: 98% RA T: 98.1 F R: 16 ENMT Mouth: + dental restorations (few crowns); no chipped teeth (lower incisors are worn down) and no loose teeth Thyromental Distance: > or= 3.5 Finger Breadths Mallampati Class: II Neck normal visual inspection; neck extension not limited Respiratory normal respiratory effort, lungs clear to auscultation Cardiovascular Rate/Rhythm: regular rate and regular rhythm Heart Sounds: + murmur (I/ systolic RSB) Vessels: no carotid bruit Extremities: no edema Testing Laboratory Results 04/02/20 WBC: 8.92 H/H: 14/41.2 PLATELETS: 243 SODIUM: 140 POTASSIUM: 4.9 CHLORIDE: 107 CO2: 27 BUN: 22 CREATININE: 0.91 GLUCOSE: 95 PT: 10.3 PTT: 24.8 INR: 1.0 TSH: 1.430 Free T4: 0.91 COVID: NEGATIVE UA: WNL TYPE AND SCREEN: B+, antibody negative Electrocardiogram Date: 03/25/20 Findings: + NSR @ (100bpm) Chest X-Ray Date: 04/02/20 Findings: + NAD Echocardiogram Date: 08/06/19 EF: 65% Normal LV size and systolic function with no regional wall motion abnormalities. Mild concentric LVH. Grade 1 diastolic dysfunction of the left ventricle. Normal left atrial pressure. Normal atria. Normal RV size and function. Mild tricuspid regurgitation. Trace/mild mitral regurgitation. Calcified, tricuspid aortic valve without stenosis. Normal pulmonary pressures.
[2020-04-21] MEDS ORDERED: ROPIVACAINE 0.5% HCL/PF 150 MG, BUPIVACAINE 0.75% MPF 20 ML, EPINEPHrine 0.15 MG, Ketor... INFIL SCH (06:00)
[2020-04-21] MEDS ORDERED: ceFAZolin 2000MG 2,000 MG/15 ML SYR IV SCH (06:00)
[2020-04-21] MEDS ORDERED: LR 60ML/HR IV SCH (06:00)
[2020-04-21] MEDS ORDERED: LR 500ML BOLUS, THEN 15ML/HR IV SCH (06:00)
[2020-04-21] MEDS ORDERED: TRANEXAMIC ACID 1,000 MG **IV Pre-op IV SCH (06:00)
[2020-04-21] MEDS ORDERED: EPINEPHrine INJ 1 MG/ML AMP ONE (06:24)
[2020-04-21] MEDS ORDERED: BUPIVACAINE 0.5 % 5 MG/1 ML PF 10ML VIAL ONE (06:24)
[2020-04-21] MEDS ORDERED: BUPIVACAINE 0.25% 30 ML VIAL ONE (06:24)
--- NOTE | 2020-04-21 06:26 | History & Physical Bridge Note ---
Date of Service April 21, 2020 History & Physical Bridge Note I have examined the patient, reviewed the History & Physical and in the interval since the performance of the History & Physical I have noted the following changes of clinical significance:consent obtained/site verified/covid screen negative. no changes noted
[2020-04-21] MEDS ORDERED: fentaNYL citrate 100 MCG/2 ML VIAL ONE (06:39)
[2020-04-21] MEDS ORDERED: MIDAZOLAM HCL 1 MG/ML 2ML VIAL ONE ×2 (06:39→07:05)
[2020-04-21] MEDS ORDERED: ORTHO JOINT ANESTHETIC ONE (06:41)
[2020-04-21] MEDS ORDERED: ONDANSETRON INJ 2 MG/ML 2 ML VIAL IV PRN ×2 (06:44→09:32)
[2020-04-21] MEDS ORDERED: HYDROmorphone INJ 2 MG/ML SYR/VIAL IV PRN (06:44)
[2020-04-21] MEDS ORDERED: ePHEDrine sulfate 50 MG/ML AMP IV PRN (06:44)
[2020-04-21] MEDS ORDERED: ATROPINE SULFATE 0.1 MG/ML 10ML SYR IV PRN (06:44)
[2020-04-21] MEDS ORDERED: fentaNYL citrate 100 MCG/2 ML VIAL IV PRN (06:44)
[2020-04-21] MEDS ORDERED: LIDOCAINE HCL 2% 2 ML VIAL/AMP(20MG/ML) INFIL ONE (07:20)
[2020-04-21] MEDS ORDERED: PROPOFOL IV EMULSION 10 MG/ML 20 ML VIAL IV ONE (07:20)
[2020-04-21] MEDS ORDERED: ONDANSETRON INJ 2 MG/ML 2 ML VIAL ONE (07:20)
--- NOTE | 2020-04-21 08:28 | Post Operative Brief Note ---
Immediate Post Op Note v1 Date of Surgery April 21, 2020 Pre & Post Diagnosis Operation Date: 04/21/20 07:00 Pre-Op Diagnosis: Right Knee Degenerative Joint Disease Post-Op Diagnosis: Right Knee Degenerative Joint Disease I identified the patient and participated in the time-out.: Yes Procedure Operation Date: 04/21/20 07:00 Actual Procedures p Right Total Knee Arthroplasty(Right) - Rene Dao MD Surgeon Rene Dao MD Applications Support Lead [email or web address] Estimated Blood Loss 25 Findings Consistent with Post-Op Diagnosis
--- NOTE | 2020-04-21 08:33 | Operative Report ---
Post Operative Report Pre & Post Diagnosis Operation Date: 04/21/20 07:00 Pre-Op Diagnosis: Right Knee Degenerative Joint Disease Post-Op Diagnosis: Right Knee Degenerative Joint Disease I identified the patient and participated in the time-out.: Yes Procedure Operation Date: 04/21/20 07:00 Actual Procedures p Right Total Knee Arthroplasty(Right) - Rene Dao MD Surgeon ASHLEY Dao MD After School Program Teacher jignesh/patrizia MCGRATH Estimated Blood Loss 25 Findings Consistent with Post-Op Diagnosis Specimens see operative report Drains none Complications none Disposition Accompanied Patient To Recovery: Yes Disposition: Recovery Room Indications This 74-year-old female presented to the office with complaints of persisting right knee pain. She had tried conservative care measures without improvement. She elected to proceed with surgical intervention after being educated about potential risks and outcomes. Preoperative imaging was obtained. Description of Procedure Patient was administered a spinal anesthetic and a regional block and then taken to the operating room where she was given sedation. She was prepped and draped in the usual sterile fashion. Please see Dr. Dao's operative report for specifics of the procedure. I was present for the entire case from initial patient positioning through final wound closure. Assistance was provided in tissue retraction, hemostasis, trial implant placement, final implant placement, and final wound closure. Patient was taken to the recovery room in satisfactory condition. I attest to the content of the Intraoperative Record and any orders documented therein. Any exceptions are noted below.
--- NOTE | 2020-04-21 08:37 | Operative Report ---
Post Operative Report Pre & Post Diagnosis Operation Date: 04/21/20 07:00 Pre-Op Diagnosis: Right Knee Degenerative Joint Disease Post-Op Diagnosis: Right Knee Degenerative Joint Disease I identified the patient and participated in the time-out.: Yes Procedure Operation Date: 04/21/20 07:00 Actual Procedures p Right Total Knee Arthroplasty(Right) - Rene Dao MD Surgeon Rene Dao MD Electronics Supervisor [email or web address]/patrizia MCGRATH Estimated Blood Loss 25 Findings Consistent with Post-Op Diagnosis Specimens bone cuts Anesthesia Type Spinal MAC Complications none Disposition Accompanied Patient To Recovery: Yes Disposition: Recovery Room Description of Procedure As per 's note, I assisted in prepping and draping, instruments handling, certain parts of the procedure and wound closure. I attest to the content of the Intraoperative Record and any orders documented therein. Any exceptions are noted below.
--- NOTE | 2020-04-21 08:39 | Operative Report (OR) ---
DATE OF OPERATION: 04/21/2020 SURGEON: Rene Dao MD. MEDIA MARKETING COORDINATOR: Dr. Rose. SECOND MEDIA MARKETING COORDINATOR: Jayme Maier PA-C. PREOPERATIVE DIAGNOSIS: Osteoarthritis with varus flexion deformity, right knee. POSTOPERATIVE DIAGNOSIS: Osteoarthritis with varus flexion deformity, right knee. OPERATION PERFORMED: Cemented right total knee replacement. PERIOPERATIVE SITUATION: Medically cleared female with intractable knee pain, has had multiple joint replacements done in her right hip and the left knee. She has had no issues with any of the implant metal. At this point in time, is proceeding with a right knee replacement. SUMMARY OF IMPLANTS: Size 3 right posterior cruciate substituting femur, size 3 mobile bearing tray, size 3 x 12.5 insert, 41 patella, 2 bags of Palacos G cement. ESTIMATED BLOOD LOSS: 25 mL CRYSTALLOID: Per anesthesia. PATHOLOGY: Pending on bone. DVT prophylaxis per protocol. PERIOPERATIVE SITUATION: Medically cleared female with intractable knee pain, has failed conservative management over years and wants to proceed with surgical treatment. At this point in time, x-rays reveal end-stage tricompartmental disease. DESCRIPTION OF PROCEDURE: The patient was appropriately identified, site verified, consent verified. Antibiotics confirmed as being given. The right lower extremity was prepped and draped in usual routine fashion. Tourniquet inflated to 300 mmHg after exsanguination of limb with a rubber Esmarch bandage for a total of 50 minutes. Midline approach utilized. Parapatellar arthrotomy performed. Synovectomy completed. Patella everted. Osteophytes resected. Distal femur entered. Cruciates resected. Distal femur resected 14 mm, proximal tibia resected 4 mm, extension gap was excellent. Femur sized to a 3. Anterior, posterior, condylar and chamfer cuts made. Flexion gap checked. Everything looked good. Box cut made, size 3 fit well. Tibia broached and reamed to a 3 and 12.5 spacer had excellent stability, mid range and full flexion and extension. Patella tracked well. The patella was resected leaving 14 mm and a 41 trial button was then seated and tracked well. Orthomix was then injected all about the knee including posteriorly. Trial implants were removed. The wound irrigated with Betadine Pulsavac and the permanent cemented in position, tibia, femur and patella in that order. At 12 minutes, the tourniquet deflated. Minor bleeding points controlled with electrocautery. At 14 minutes, the knee flexed, trial insert removed. The knee irrigated one final time and then the permanent liner seated. The knee reduced and closed at 30-40 degrees of flexion using #2 Vicryl, 2-0 Vicryl and stainless steel clips. Appropriate dressing applied. The patient transferred to recovery room in satisfactory condition having tolerated the procedure well. I attest to the content of the Intraoperative Record and any orders documented therein. Any exception s are noted below.
--- NOTE | 2020-04-21 08:59 | XRay Report ---
RIGHT KNEE 2 VIEWS History: Right total knee arthroplasty. Degenerative arthritis. Postop. FINDINGS: The patient is status post a right total knee arthroplasty. The hardware is intact. No frac ture or dislocation. Skin iveth are in place. IMPRESSION: Right total knee arthroplasty. No evidence for hardware complication. ACT 112: Negative or not required by law. Electronically signed by: Lito Gramajo M.D. 04/21/2020 8:58 AM
[2020-04-21] MEDS ORDERED: VANCOMYCIN HCL 1,500 MG in SODIUM CHLORIDE 0.9% 500 ML IV SCH (09:00)
[2020-04-21] MEDS ORDERED: SODIUM CHLORIDE 0.9% 1000ML 1,000 ML IV SCH (09:32)
[2020-04-21] MEDS ORDERED: bisacodyL 10 MG SUPP PR PRN (09:32)
[2020-04-21] MEDS ORDERED: HYDROmorphone INJ 0.5 MG/0.5 ML SYR IV PRN (09:32)
[2020-04-21] MEDS ORDERED: ALUMINUM/MAGNESIUM SUSP 30 ML UDC PO PRN (09:32)
[2020-04-21] MEDS ORDERED: oxyCODONE HCL IR 5 MG TAB (IMMEDIATE RELEASE) PO PRN (09:32)
[2020-04-21] MEDS ORDERED: METOCLOPRAMIDE HCL INJ 5 MG/ML 2 ML VIAL IV PRN (09:32)
[2020-04-21] MEDS ORDERED: MAGNESIUM HYDROXIDE SUSP 30 ML UDC PO PRN (09:32)
[2020-04-21] MEDS ORDERED: NALOXONE HCL 0.4 MG/1 ML VIAL/CARP IV PRN (09:32)
[2020-04-21] MEDS ORDERED: diphenhydrAMINE 50 MG/ML VIAL IV PRN (09:32)
[2020-04-21] MEDS: CLOTRIMAZOLE/BETAMETHASONE CR 15 GM TUBE EXT SCH ×2 (09:51→21:21)
--- NOTE | 2020-04-21 09:52 | Anesthesiology Progress Note ---
Date of Service April 21, 2020 Anesthesia Post Procedure Vital Signs Vital Signs: Temp Pulse Pulse Resp BP Pulse Ox 04/21/20 09:15 36.1 C L 85 15 114/71 98 04/21/20 09:05 36.1 C L 82 15 118/72 96 04/21/20 08:55 80 18 116/67 100 04/21/20 08:45 99 H 18 113/72 99 04/21/20 08:35 36.1 C L 93 H 15 102/61 97 04/21/20 05:49 36.8 C 91 H 18 152/91 H 96 Pain Intensity Bilateral Lower Back: Pain Intensity: 3 Transfer of Care Handoff Completed per policy Notes Mental Status: alert / awake / arousable and participated in evaluation Patient Amnestic to Procedure: Yes Nausea / Vomiting: adequately controlled Pain: adequately controlled Airway Patency, RR, SpO2: stable & adequate BP & HR: stable & adequate Hydration State: stable & adequate Anesthetic Complications: no major complications apparent and Pt Satisfied with anesthetic care
--- NOTE | 2020-04-21 10:59 | Progress Notes ---
DATE: 04/21/2020 SUBJECTIVE: Status post right total knee replacement. The patient is sitting up in bed, denies chest pain, shortness of breath, fever, chills, nausea, vomiting or headache. She has already eaten. She is worried she is going to get too much fluid and is requesting the IV fluid be stopped. I think it is reasonable. Just use it for meds. Right now, she is getting some vancomycin. OBJECTIVE: Vital signs are stable. She is afebrile. Neurovascular check is still limited by spinal, but is rolling both legs. A slight dorsiflexion and plantar flexion of both feet. Postop x-rays look excellent. ASSESSMENT: Doing well. Continue with care pathway. Discharge to home tomorrow. Hep lock/saline lock IV fluid now.
[2020-04-21] MEDS: MULTIVITAMIN TAB PO SCH (11:01)
[2020-04-21] MEDS: DOCUSATE SODIUM 100 MG CAP PO SCH ×2 (11:01→21:20)
[2020-04-21] MEDS: KETOROLAC TROMETHAMINE 15 MG/ML VIAL IV SCH ×3 (11:01→22:42)
--- NOTE | 2020-04-21 11:04 | Discharge Summary (DS) ---
CHIEF COMPLAINT: Right knee pain. HISTORY OF PRESENT ILLNESS: Underwent elective right total knee replacement. Hospital course to date has been uneventful. Postop x-rays look excellent. REVIEW OF SYSTEMS: Reveals no chest pain, shortness of breath, fever, chills, nausea, vomiting or headache. PAST MEDICAL HISTORY: Remarkable for cardiac murmur, dyslipidemia, hypertension, hyperthyroidism, fainting spells, obesity, osteoarthritis, osteopenia. PAST SURGICAL HISTORY: Remarkable for colonoscopies, hysterectomy, knee replacement on the left, hip replacement on the right, tonsillectomy, tooth extraction, breast reduction. FAMILY HISTORY: Remarkable for Alzheimer's disease in her mother. Father, myocardial infarction. Daughter, breast cancer, ER positive, genetics were negative. Denies history of ovarian cancer, colorectal cancer, or uterine cancer. SOCIAL HISTORY: Reveals she is . Does not smoke. Social alcohol only. Feels safe at home. REVIEW OF SYSTEMS: Again, it is noncontributory. ASSESSMENT: Doing well status post right total knee replacement. Discharge to home with all of her previous medications including methimazole, multivitamins, clotrimazole, betamethasone, fluconazole, Coumadin to keep INR 1.8-2.2 and p.r.n. Percocet.
[2020-04-21] MEDS: ORTHO WARFARIN NOMOGRAM SCH (14:20)
[2020-04-21] MEDS: ACETAMINOPHEN 500 MG TAB PO SCH ×2 (14:20→21:21)
[2020-04-21] MEDS ORDERED: TRANEXAMIC ACID / 0.7% NACL 1,000 MG/100 ML BAG IV SCH (14:40)
[2020-04-21] MEDS: ceFAZolin 2000MG 2,000 MG/15 ML SYR IV SCH ×2 (15:20→22:43)
[2020-04-21] MEDS ORDERED: WARFARIN SOD 5 MG TAB PO SCH (16:00)
[2020-04-21] MEDS: ASCORBIC ACID 500 MG TAB PO SCH (16:33)
[2020-04-21] MEDS: FERROUS GLUCONATE 324 MG TAB PO SCH (16:34)
[2020-04-21] MEDS ORDERED: SENNA 8.6 MG TAB PO SCH (21:00)
[2020-04-21] MEDS ORDERED: methIMAzole 5 MG TABLET PO SCH (21:00)
[2020-04-22] MEDS: ACETAMINOPHEN 500 MG TAB PO SCH ×2 (05:28→13:56)
[2020-04-22] MEDS: KETOROLAC TROMETHAMINE 15 MG/ML VIAL IV SCH (05:28)
[2020-04-22 07:46] LABS: Hematocrit (blood only) 33.8 % (37-47); Hemoglobin 11.4 g/dL (12.0-16.0); Mean Corpuscular Hemoglobin 30.2 pg (25-34); Mean Corpuscular Hgb Conc 33.7 g/dL (32-36); Mean Corpuscular Volume 89.4 fL (80-100); Mean Platelet Volume 10.9 fL (7.4-10.4); Platelet Count 192 K/uL (130-400); RDW Coefficient of Variation 14.3 % (11.5-14.5); RDW Standard Deviation 47.2 fL (36.4-46.3); Red Blood Count 3.78 M/uL (4.2-5.4); White Blood Count 14.19 K/uL (4.8-10.8)
[2020-04-22] MEDS: DOCUSATE SODIUM 100 MG CAP PO SCH (07:53)
[2020-04-22] MEDS: FERROUS GLUCONATE 324 MG TAB PO SCH (07:53)
[2020-04-22] MEDS: CLOTRIMAZOLE/BETAMETHASONE CR 15 GM TUBE EXT SCH (07:54)
[2020-04-22] MEDS: ASCORBIC ACID 500 MG TAB PO SCH (07:54)
[2020-04-22] MEDS: MULTIVITAMIN TAB PO SCH (07:54)
[2020-04-22 07:56] LABS: Prothrombin Time 10.6 Seconds (9.0-12.0)
[2020-04-22] MEDS ORDERED: dexAMETHasone 10 MG in SYRINGE 0 ML IV SCH (08:00)
[2020-04-22 08:18] LABS: BUN Creatinine Ratio 22.9 (10-20); Calcium 9.1 mg/dl (8.5-10.1); Creatinine Clr Calc Pharmacy 62.6 ml/min; Potassium 4.5 mmol/L (3.5-5.1)
--- NOTE | 2020-04-22 08:20 | Progress Notes ---
DATE: 04/22/2020 SUBJECTIVE: Postop day #1 status post right total knee replacement. The patient is doing well. Slept most of the night. Denies any severe pain. Denies chest pain, shortness of breath, fever, chills, nausea, vomiting or headache. OBJECTIVE: Vital signs are stable. She is afebrile. A.m. lab work is pending. Wound dressing clean, dry and intact. Neurovascular check, femoral sciatic nerve is normal. Can do a straight leg raise. Ankle pumps. ASSESSMENT: Doing well. Discharge to home today. Coumadin prior to discharge.
--- NOTE | 2020-04-22 10:33 | Orthopedic Progress Note ---
Date of Service April 22, 2020 Assessment & Plan (1) Status post total right knee replacement using cement: Patient's dressings were changed by me this morning. MIKO hose were reapplied. She has completed PT and OT participation. Anticipate discharge to home today with home health services. Continue using the walker for ambulation. Follow-up in the office on May 06 as scheduled for staple removal. Written discharge instructions have been provided. Prescriptions for Percocet and Coumadin have been sent to her pharmacy. She will take Coumadin 4 mg daily through the weekend and have her blood level rechecked on Sunday. Admission and Anticipated Discharge Date Admission Date: April 21, 2020 Subjective Patient is seen in her room this morning. She just completed therapy and was ambulating in the diaz. She did quite well. She states she has had no chest pain, shortness of breath, nausea, vomiting, or abdominal pain. She states she slept fairly well. She is complaining of thigh pain in the area of the tourniquet placement, more than the pain in the operative knee. No numbness or tingling. She feels ready for discharge to home. Review of Systems Review of Systems: Unchanged from yesterday. Physical Exam Physical Exam: General: Well-developed, well-nourished, elderly female, in no acute distress. Laying on a bed. Alert and oriented. Skin: Warm and dry with good turgor. No rashes. Patient has a healing surgical incision on the right knee. [place] are intact. Wound edges are well approximated. There is scant dried blood on her inner dressings. No active bleeding at this time. Expected postoperative edema. No ecchymosis. Musculoskeletal: Patient has intact motor function to the ankle and toes. She has full terminal extension of the knee. She is able to perform a straight leg raise. Knee flexion to around 50 degrees without warming up. She has been out of bed and ambulatory. Neurologic: Gross sensation is intact across the right leg by soft touch. Peripheral pulses are 2+. Results & Data ([facility]) Vital Signs (Past 12 Hours) Vital Signs Temp Pulse Resp BP Pulse Ox 04/22/20 07:31 36.7 C 73 16 107/68 97 04/22/20 03:22 36.6 C 84 16 115/70 97 04/21/20 23:20 36.9 C 91 H 18 110/65 97
[2020-04-22] MEDS ORDERED: WARFARIN SOD 5 MG TAB PO ONE (12:45)
[2020-04-22] MEDS: ORTHO WARFARIN NOMOGRAM SCH (13:57)
[2020-04-22] MEDS ORDERED: WARFARIN SOD 5 MG TAB PO SCH (16:00)
== END 2020-04-22 15:02 | disposition home health service (06) ==
LOC: ASU 05:15 → 3E 05:15